=== PATIENT | male | born 1950 ===

== ENCOUNTER → 2022-06-06 | Outpatient (CLI) | payer MEDICARE, MEDICAID ==
[~2022-06-06] MED LIST: FLOMAX 0.40.4 MG/CAP PO; PROTONIX 40MG T40 MG PO; REGLAN 10MG10 MG/TAB PO
== END ==
LOC: COL.RAD 10:20
DX: C24.0 Malignant neoplasm of extrahepatic bile duct (principal); N28.89 Other specified disorders of kidney and ureter; K57.30 Diverticulosis of large intestine without perforation or abscess without bleeding; K59.00 Constipation, unspecified; Z90.410 Acquired total absence of pancreas; Z98.890 Other specified postprocedural states
CPT/HCPCS: Q9967

== ENCOUNTER → 2022-09-08 | Outpatient (CLI) | payer MEDICARE, MEDICAID | LOC: COL.RAD 09:32 | DX: C24.0 Malignant neoplasm of extrahepatic bile duct (principal); N28.89 Other specified disorders of kidney and ureter | CPT/HCPCS: Q9967 ==